=== PATIENT | female | born 1985 | race Caucasian/White ===

== ENCOUNTER 2016-03-04 16:55 | Emergency (ER) | payer BC ==
[2016-03-04] MEDS ORDERED: OPTIRAY 350 100 ML VIAL HMH IV ONE (16:56)
[2016-03-04] MEDS ORDERED: LIDOCAINE 2% VISC 15 ML UDC ONE (18:21)
[2016-03-04] MEDS ORDERED: ALU/MAG/SIM 30 ML UDC ONE (18:21)
[2016-03-04] MEDS ORDERED: ONDANSETRON 4 MG VIAL ONE (19:46)
[2016-03-04] MEDS ORDERED: MORPHINE 4 MG/ML SYR ONE (19:47)
[2016-03-04] MEDS ORDERED: DILAUDID 1 MG/ML AMP ONE (22:03)
== END 2016-03-04 22:19 | disposition home or self-care (01) ==
LOC: ER 16:55
DX: R10.84 Generalized abdominal pain (principal)
CPT/HCPCS: 36415; 71020; 74177; 80053; 81001; 83690; 84703; 85025; 96374; 96375